=== PATIENT | female | born 1945 | race Caucasian/White ===

== ENCOUNTER 2017-11-15 23:17 | Inpatient (IN) | payer MEDICARE, OTHER ==
[~2017-11-15] VITALS: Ht 162.6 cm; Wt 67.4 kg
[2017-11-15 23:39] LABS: BASOPHILS # (AUTO) 0.03 x10^3/uL (0-0.1); BASOPHILS % (AUTO) 0 % (0-1); EOSINOPHILS # (AUTO) 0.17 x10^3/uL (0-0.4); EOSINOPHILS % (AUTO) 2 % (1-7); LYMPHOCYTES # (AUTO) 2.48 x10^3/uL (1-3.4); LYMPHOCYTES % (AUTO) 22 % (22-44); MD NO; MEAN CORPUSCULAR HEMOGLOBIN 30.2 pg (27.0-34.8); MEAN CORPUSCULAR VOLUME 88.7 fL (80-100); MEAN PLATELET VOLUME 7.3 fL (7.4-10.4); MONOCYTES # (AUTO) 0.71 x10^3/uL (0.2-0.8); MONOCYTES % (AUTO) 6 % (2-9); NEUTROPHILS # (AUTO) 7.84 x10^3/uL (1.8-6.8); NEUTROPHILS % (AUTO) 70 % (42-75); PLATELET COUNT 416 x10^3/uL (130-400); RED BLOOD COUNT 4.64 x10^6/uL (3.82-5.3); RED CELL DISTRIBUTION WIDTH 13.9 % (9.6-15.2)
[2017-11-15 23:50] LABS: ALANINE AMINOTRANSFERASE 22 U/L (12-78); ALBUMIN 3.8 g/dL (3.4-5.0); ANION GAP 7 mmol/L (5-15); CALCIUM 8.7 mg/dL (8.5-10.1); CHLORIDE 103 mmol/L (98-107)
[2017-11-15 23:53] LABS: ALKALINE PHOSPHATASE 99 U/L (45-117); BILIRUBIN,TOTAL 0.5 mg/dL (0.2-1.0); CREATININE 1.17 mg/dL (0.55-1.02); TOTAL PROTEIN 6.7 g/dL (6.4-8.2)
[2017-11-16] MEDS ORDERED: ONDANSETRON ODT 4 MG PO ONE
[2017-11-16] MEDS ORDERED: LIDOCAINE-MPF 2% ,5ML INFIL ONE
[2017-11-16] MEDS ORDERED: KETOROLAC 30 MG/1 ML IM ONE
[2017-11-16] MEDS ORDERED: ONDANSETRON ODT 4 MG ONE (00:11)
[2017-11-16] MEDS ORDERED: LIDOCAINE-MPF 2% ,5ML ONE (00:12)
[2017-11-16] MEDS ORDERED: KETOROLAC 30 MG/1 ML ONE (00:12)
[2017-11-16 00:14] LABS: HCT (SEDRATE) 41.2 % (34.6-47.8)
[2017-11-16] MEDS ORDERED: OMEP-110 PO (01:44)
[2017-11-16] MEDS ORDERED: LAMOTRIGINE (01:44)
[2017-11-16] MEDS ORDERED: LEVO50TA5 PO (01:44)
[2017-11-16] MEDS ORDERED: SPIR25TA3 PO (01:44)
[2017-11-16] MEDS ORDERED: ATOR10TA PO (01:44)
[2017-11-16] MEDS ORDERED: ASPI-496 PO (01:44)
[2017-11-16] MEDS ORDERED: LOSA100T6 PO (01:44)
[2017-11-16] MEDS ORDERED: AMLO2.5T PO (01:44)
[2017-11-16] MEDS ORDERED: SODIUM CHLORIDE 0.9% 1,000 ML IV SCH (02:06)
[2017-11-16 02:22] VITALS: BP 150/78
[2017-11-16] MEDS ORDERED: ONDANSETRON ODT 4 MG PO PRN (02:30)
[2017-11-16] MEDS ORDERED: hydrALAzine 20 MG/ML, 1ML IVPush PRN (02:30)
[2017-11-16] MEDS ORDERED: ONDANSETRON 2MG/ML, 2ML IVPush PRN (02:30)
[2017-11-16] MEDS ORDERED: ACETAMINOPHEN 325 MG TABLET PO PRN (02:30)
[2017-11-16] MEDS ORDERED: BISACODYL 10 MG SUPP PR PRN (02:30)
[2017-11-16] MEDS ORDERED: LABETALOL 5MG/ML, 20ML IVPush PRN (02:30)
[2017-11-16] MEDS ORDERED: morphine SULFATE 10 MG/ML, 1ML IVPush PRN (02:30)
[2017-11-16] MEDS ORDERED: POLYETHYLENE GLYCOL 17 GM PACKET PO PRN (02:30)
[2017-11-16] MEDS ORDERED: PROMETHAZINE 25 MG/ML, 1ML IM PRN (02:30)
[2017-11-16 02:43] LABS: FREE T4 (FREE THYROXINE) 1.27 ng/dL (0.76-1.46); HEMOGLOBIN A1C 5.2 % (4.2-6.3); THYROID STIMULATING HORMONE 3.57 mIU/L (0.358-3.740)
[2017-11-16] MEDS: HEPARIN 5,000 UNITS/ML, 1ML SQ SCH ×2 (03:04→09:09)
[2017-11-16 03:10] LABS: MICROSCOPIC NOT IND
[2017-11-16 03:12] LABS: CULTURE INDICATED? NO
[2017-11-16] MEDS ORDERED: LEVOTHYROXINE 50 MCG TABLET PO SCH (06:00)
[2017-11-16 08:50] VITALS: BP 117/76
[2017-11-16] MEDS ORDERED: SENNA/DOCUSATE TABLET PO SCH (09:00)
[2017-11-16] MEDS ORDERED: SPIRONOLACTONE 25 MG TABLET PO SCH (09:00)
[2017-11-16] MEDS ORDERED: AMLODIPINE 2.5 MG TABLET PO SCH (09:00)
[2017-11-16] MEDS ORDERED: ASPIRIN 81 MG TABLET CHEW PO SCH (09:00)
[2017-11-16] MEDS ORDERED: LAMOTRIGINE 200 MG TABLET PO SCH (09:00)
[2017-11-16] MEDS ORDERED: OMEPRAZOLE 20 MG CAPSULE.DR PO SCH (09:00)
[2017-11-16] MEDS ORDERED: LOSARTAN 50MG TABLET PO SCH (09:00)
[2017-11-16] MEDS ORDERED: ATORVASTATIN 10 MG TABLET PO SCH (21:00)
== END 2017-11-16 13:30 | disposition home or self-care (01) | DRG 555 ==
LOC: ED 23:33 → EDIP 11-16 01:41 → 4WST 11-16 02:24 → DCLOUNGE 11-16 13:20
PROVIDERS: ADMIT Internal Medicine; ATTEND Internal Medicine
PROC: 0J9C3ZZ Drainage of Pelvic Region Subcutaneous Tissue and Fascia, Percutaneous Approach (ICD-10-PCS; principal; 2017-11-15)
DX: M79.81 Nontraumatic hematoma of soft tissue (principal); N17.0 Acute kidney failure with tubular necrosis; E03.9 Hypothyroidism, unspecified; E11.9 Type 2 diabetes mellitus without complications; E78.5 Hyperlipidemia, unspecified; G40.909 Epilepsy, unspecified, not intractable, without status epilepticus; I10 Essential (primary) hypertension; R27.0 Ataxia, unspecified; Z82.0 Family history of epilepsy and other diseases of the nervous system; Z90.710 Acquired absence of both cervix and uterus
CPT/HCPCS: 10140; 36415; 80053; 81003; 82962; 83036; 83605; 83735; 84439; 84443; 85025; 85651; 86140; 96372; 99285; J1644; J1885; Q0162; J7030